=== PATIENT | female | born 1990 | race African-American/Black ===

== ENCOUNTER 2021-05-10 07:47 | Emergency (ER) | payer SELFPAY ==
[~2021-05-10] VITALS: Ht 167.6 cm; Wt 50.8 kg
[2021-05-10 07:52] VITALS: BP 132/80
[2021-05-10] MEDS ORDERED: PHEN100C4 PO (07:54)
--- NOTE | 2021-05-10 08:05 | NUR ---
Patient given written and verbal discharge instructions. Patient verbalizes understanding of instructions. Patient is ambulatory with steady gait. Refuses offer of [facility] placement. Patient given list of available shelters in surrounding area.
--- NOTE | 2021-05-10 08:05 | NUR ---
Patient discharged to home in stable condition. Written and verbal after care instructions given. Patient verbalizes understanding of instruction.
--- NOTE | 2021-05-10 08:05 | NUR ---
Jefe berger in [facility] - 05/10/21 at 0806 by AMRIT Patient discharged to home in stable condition. Written and verbal after care instructions given. Patient verbalizes understanding of instruction.
== END 2021-05-10 08:14 | disposition home or self-care (01) ==
LOC: ER 07:50
DX: G40.909 Epilepsy, unspecified, not intractable, without status epilepticus (principal); Z76.0 Encounter for issue of repeat prescription; Z59.0 Homelessness